=== PATIENT | male | born 1975 | race Caucasian/White ===

== ENCOUNTER 2016-08-06 08:58 | Inpatient (IN) | payer MEDICAID ==
[2016-08-06] MEDS ORDERED: IPRATROPIUM/ALBUTEROL 3 ML DEYVIAL IH ONE ×2 (09:09→10:19)
[2016-08-06] MEDS ORDERED: IPRATROPIUM/ALBUTEROL 3 ML DEYVIAL ONE (09:11)
[2016-08-06 09:15] LABS: % IMMATURE GRANULYOCYTES 0.5 % (0.0-1.1); ABSOLUTE IMMATURE GRANULOCYTES 0.05 10^3/uL (0.00-0.10); ADD DIFF? NO; ADD MORPH? NO; ADD SCAN? NO; ATYPICAL LYMPHOCYTE FLAG 30 (0-99); FRAGMENT RBC FLAG 0 (0-99); HEMATOCRIT 43.2 % (40.0-51.0); HEMOGLOBIN 15.1 g/dL (13.7-17.5); LEFT SHIFT FLG 0 (0-99); LIPEMIA HEMOLYSIS FLAG 90 (0-99); MEAN CELL HEMOGLOBIN 31.1 pg (27.9-34.1); MEAN CELL VOLUME 88.9 fL (81.5-99.8); MEAN PLATELET VOLUME 11.8 fL (8.7-11.7); PLATELET CLUMPS FLAG 0 (0-99); PLATELET COUNT 201 10^3/uL (150-400); RED BLOOD CELL COUNT 4.86 10^6/uL (4.40-6.38); RED CELL DISTRIBUTION WIDTH 12.8 % (11.5-15.2)
[2016-08-06] MEDS ORDERED: NS 1,000 ML BAG *FOR SEPSIS ORDER SET ONLY IV ONE (09:50)
--- NOTE | 2016-08-06 09:53 | EDPHY ---
H & P Stated Complaint: 1 week FLS, coughing green sputum, fevers, chills, Time Seen by Provider: 08/06/16 09:43 HPI/ROS: CHIEF COMPLAINT: Cough, dyspnea times 10 days HISTORY OF PRESENT ILLNESS: 41-year-old old homeless male arrives via private vehicle complaining of 10 days of productive cough, dyspnea, chest pain. Daily smoker. Non chronic alcohol use. No back pain. No international travel. REVIEW OF SYSTEMS: A ten point review of systems was performed and is negative with the exception of the items mentioned in the HPI PAST MEDICAL & SURGICAL HISTORY: No pertinent medical or surgical history . No influenza vaccination SOCIAL HISTORY: daily smoker. Homeless. Denies cocaine or other illicit drug use. Intermittent alcohol use, not daily PHYSICAL EXAM (Prior to examination, patient consented to physical exam, hands were washed and my usual and customary physical exam procedures followed) 1) GENERAL: Well-developed, well-nourished, alert and oriented. Appears uncomfortable .Answering questions appropriately 2) HEAD: Normocephalic, atraumatic 3) HEENT:[Pupils equal, round, reactive to light bilaterally. Sclera anicteric.Nasopharynx, oropharynx, clear, no lesions. No tonsillar enlargement or exudate.Ears bilaterally with normal tympanic membranes. 4) NECK: Full range of motion, no meningeal signs. 5) LUNGS: Clear auscultation bilaterally, no wheezes, no rhonchi, no retractions. 6) HEART: Regular rate and rhythm, no murmur, no heave, no gallop. 7) ABDOMEN: No guarding, no rebound, no focal tenderness, negative McBurney's, 8) MUSCULOSKELETAL: Moving all extremities, no focal areas of tenderness, no obvious trauma. No peripheral edema or discoloration. 9) BACK: No CVA tenderness 10) SKIN: No rash, no petechiae. 11) Psychiatric: Patient is oriented X 3, there is no agitation. DIFFERENTIAL DIAGNOSIS: in no particular include but limited to pulmonary infectious etiology, influenza, [place], PE - Personal History Current Tetanus/Diphtheria Vaccine: Yes Current Tetanus Diphtheria and Acellular Pertussis (TDAP): Yes - Medical/Surgical History Hx Asthma: No Hx Chronic Respiratory Disease: No Hx Diabetes: No Hx Cardiac Disease: No Hx Renal Disease: No Hx Cirrhosis: No Hx Alcoholism: No Hx HIV/AIDS: No Hx Splenectomy or Spleen Trauma: No Other PMH: none - Social History Smoking Status: Current every day smoker Constitutional: Initial Vital Signs Temperature (C) 36.5 C 08/06/16 09:10 Heart Rate 115 H 08/06/16 09:10 Respiratory Rate 25 H 08/06/16 09:10 Blood Pressure 113/70 08/06/16 09:10 O2 Sat (%) 96 08/06/16 09:10 O2 Delivery Mode Room Air O2 (L/minute) 2 Allergies/Adverse Reactions: hydrocodone bitartrate [From Vicodin] Allergy (Intermediate, Verified 08/31/14 16:24) Itching Home Medications: Medication Instructions Recorded NK [No Known Home Meds] 08/06/16 Medical Decision Making - Diagnostics Imaging: PA and Lateral Chest History: Productive cough in a 41-year-old male; comparison prior study September. The patient has a smoking history. Findings: The heart and mediastinal contours are normal. Pulmonary vascularity is normal. There is central mild peribronchial thickening which is slightly more pronounced than on the previous examination. There are no alveolar opacities seen to suggest pneumonia. Impression: Findings consistent with bronchitis are noted. An element of the peribronchial thickening may be related to the smoking history. Dictated By: José Hoffman MD images reviewed by myself ED Course/Re-evaluation: 9:55 a.m.: Diagnostic studies will be ordered, patient has triggered initial sepsis criteria. Discussed case Dr. Clarke in ER. 12:15 p.m.: Patient has been re-evaluated with serial exams. He is noted to have a positive influenza. He has been ambulated in the emergency department and remains tachycardic in the 120s to 130s and tachypneic. His pulse oxygenation remains in the low 90s. He is homeless. I do not think this patient is an appropriate candidate for outpatient therapy and recommended admission which he is agreeable with. Doubt PE. Doubt [place]. 12:25 p.m.: Phone consultation with hospitalist, Jessie, admit to Dr. Schmidt - Data Points Laboratory Results: Laboratory Results 08/06/16 09:09 08/06/16 09:09 0108/06/16 08/06/16 10:55 10:15 09:50 WBC RBC Hgb Hct MCV MCH MCHC RDW Plt Count MPV Neut % (Auto) Lymph % (Auto) [place] % (Auto) Eos % (Auto) Baso % (Auto) Nucleat RBC Rel Count Absolute Neuts (auto) Absolute Lymphs (auto) Absolute Monos (auto) Absolute Eos (auto) Absolute Basos (auto) Absolute Nucleated RBC Immature Gran % Immature Gran # PT INR APTT D-Dimer VBG Lactic Acid 1.6 mmol/L (0.7-2.1) Sodium Potassium Chloride Carbon Dioxide Anion Gap BUN Creatinine Estimated GFR Glucose Calcium Total Bilirubin 1.0 mg/dL (0.1-1.4) Troponin I < 0.012 ng/mL (0-0.034) Influenza Typ A,B (DFA) POSITIVE FOR FLU A H (NEGATIVE) 08/06/16 08/06/16 09:30 09:09 WBC 10.64 H 10^3/uL (3.80-9.50) RBC 4.86 10^6/uL (4.40-6.38) Hgb 15.1 g/dL (13.7-17.5) Hct 43.2 % (40.0-51.0) MCV 88.9 fL (81.5-99.8) MCH 31.1 pg (27.9-34.1) MCHC 35.0 g/dL (32.4-36.7) RDW 12.8 % (11.5-15.2) Plt Count 201 10^3/uL (150-400) MPV 11.8 H fL (8.7-11.7) Neut % (Auto) 80.0 H % (39.3-74.2) Lymph % (Auto) 8.0 L % (15.0-45.0) [place] % (Auto) 10.9 % (4.5-13.0) Eos % (Auto) 0.2 L % (0.6-7.6) Baso % (Auto) 0.4 % (0.3-1.7) Nucleat RBC Rel Count 0.0 % (0.0-0.2) Absolute Neuts (auto) 8.52 H 10^3/uL (1.70-6.50) Absolute Lymphs (auto) 0.85 L 10^3/uL (1.00-3.00) Absolute Monos (auto) 1.16 H 10^3/uL (0.30-0.80) Absolute Eos (auto) 0.02 L 10^3/uL (0.03-0.40) Absolute Basos (auto) 0.04 10^3/uL (0.02-0.10) Absolute Nucleated RBC 0.00 10^3/uL (0-0.01) Immature Gran % 0.5 % (0.0-1.1) Immature Gran # 0.05 10^3/uL (0.00-0.10) PT 13.4 SEC (12.0-15.0) INR 1.03 (0.83-1.16) APTT 29.5 SEC (23.0-38.0) D-Dimer 0.46 ug/mLFEU (0.00-0.50) VBG Lactic Acid Sodium 137 mEq/L (134-144) Potassium 4.2 mEq/L (3.5-5.2) Chloride 101 mEq/L (97-110) Carbon Dioxide 25 mEq/l (22-31) Anion Gap 11 mEq/L (8-16) BUN 9 mg/dL (7-23) Creatinine 1.1 mg/dL (0.7-1.3) Estimated GFR > 60 Glucose 103 H mg/dL (70-100) Calcium 9.0 mg/dL (8.5-10.4) Total Bilirubin Troponin I Influenza Typ A,B (DFA) Medications Given: Discontinued Medications Albuterol/Ipratropium (Duoneb) 3 ml IH EDNOW ONE Stop: 08/06/16 09:10 Last Admin: 08/06/16 09:15 Dose: 3 ml Albuterol/Ipratropium (Duoneb) 3 ml IH EDNOW ONE Stop: 08/06/16 10:20 Last Admin: 08/06/16 11:00 Dose: 3 ml Lorazepam (Ativan Injection) 1 mg IVP EDNOW ONE Stop: 08/06/16 12:30 Last Admin: 08/06/16 12:56 Dose: 1 mg Methylprednisolone Sodium Succinate (Solu-Medrol) 125 mg IVP EDNOW ONE Stop: 08/06/16 10:20 Last Admin: 08/06/16 10:55 Dose: 125 mg Oseltamivir Phosphate (Tamiflu) 75 mg PO EDNOW ONE Stop: 08/06/16 11:37 Last Admin: 08/06/16 11:45 Dose: 75 mg Sodium Chloride (Ns *For Sepsis Order Set Only*) 2,722 ml IV EDNOW ONE Stop: 08/06/16 09:51 Last Admin: 08/06/16 10:25 Dose: 2,722 ml Departure - Departure Disposition: [facility] Acute Clinical Impression: Influenza due to influenza virus, type A, human
--- NOTE | 2016-08-06 10:04 | DX ---
PA and Lateral Chest History: Productive cough in a 41-year-old male; comparison prior study September 14, 2014. The patient bill s a smoking history. Findings: The heart and mediastinal contours are normal. Pulmonary vascularity is normal. There is c entral mild peribronchial thickening which is slightly more pronounced than on the previous examinati on. There are no alveolar opacities seen to suggest pneumonia. Impression: Findings consistent with bronchitis are noted. An element of the peribronchial thickeni ng may be related to the smoking history.
--- NOTE | 2016-08-06 10:05 | CPEKG ---
Heart Rate: 106 RR Interval: 566 P-R Interval: 132 QRSD Interval: 114 QT Interval: 376 QTC Interval: 500 P [place]: 65 QRS [place]: 80 T Wave [place]: 18 EKG Severity - ABNORMAL ECG - EKG Impression: SINUS TACHYCARDIA EKG Impression: NONSPECIFIC INTRAVENTRICULAR CONDUCTION DELAY Electronically Signed By: Ivana Lyn 08-Aug-2016 15:04:08
[2016-08-06 10:07] LABS: ANION GAP 11 mEq/L (8-16); CARBON DIOXIDE 25 mEq/l (22-31); CHLORIDE 101 mEq/L (97-110); CREATININE 1.1 mg/dL (0.7-1.3); GLOMERULAR FILTRATION RATE > 60; GLUCOSE 103 mg/dL (70-100); POTASSIUM 4.2 mEq/L (3.5-5.2); SODIUM 137 mEq/L (134-144)
[2016-08-06 10:12] LABS: INR 1.03 (0.83-1.16); PROTIME(PATIENT) 13.4 SEC (12.0-15.0)
[2016-08-06 10:13] LABS: APTT 29.5 SEC (23.0-38.0)
[2016-08-06] MEDS ORDERED: methylPREDNISolone SOD SUCC 125 MG/2 ML VIAL IVP ONE (10:19)
[2016-08-06 11:04] LABS: TROPONIN I < 0.012 ng/mL (0-0.034)
[2016-08-06] MEDS ORDERED: OSELTAMIVIR PHOSPHATE 75 MG CAP PO ONE (11:36)
[2016-08-06] MEDS ORDERED: LORazepam 2 MG/ML INJ IVP ONE (12:29)
[2016-08-06 14:51] LABS: COLOR YELLOW; LEUKOCYTE ESTERASE,URINE NEGATIVE (NEGATIVE); NITRITE,URINE NEGATIVE (NEGATIVE)
[2016-08-06] MEDS ORDERED: ONDANSETRON 4 MG/2 ML VIAL IVP PRN (15:17)
[2016-08-06] MEDS ORDERED: ONDANSETRON DISINTEGRATING 4 MG TAB PO PRN (15:17)
--- NOTE | 2016-08-06 15:29 | PDGENHP ---
History and Physical - Chief Complaint sob - History of Present Illness 41 YO recently homeless male who has been having SOB, fatigue, and malaise for 10 days. Denies fever. Reports Chills. Experiencing non productive cough, SOB, EUBANKS. Was worse today so he presented to [facility]. In the ED he was found to have Influenza A. Tamiflu, steroids, and IVF started. Feels better since receiving this in the E.D. Did not get the influenza vaccine this year CXR: no signs of pneumonia. There is peribronchial thickening ROS: + per HPI, otherwise negative PMHX: Migraines SOCHX: + T/+E/denies illicits FmHx: adopted all/meds: see med rec O VSS on RA. Not hypotensive. Slight tachycardia NAD MM MOIST NO JVD RRR DIMINISHED BILATERALLY, EXP WHEEZE BILATERALLY, NORMAL WORK OF BREATHING S/NT/ND NO EDEMA AAOX3 History Information - Allergies/Home Medication List Allergies/Adverse Reactions: hydrocodone bitartrate [From Vicodin] Allergy (Intermediate, Verified 08/31/14 16:24) Itching Home Medications: NK [No Known Home Meds] 08/06/16 [Last Taken Unknown] I have personally reviewed and updated: medical history, social history - Social History Smoking Status: Current every day smoker Physical Exam Temp Pulse Resp BP Pulse Ox 37.1 C 118 H 24 H 103/62 95 08/06/16 13:59 08/06/16 13:59 08/06/16 13:59 08/06/16 13:59 08/06/16 13:59 Lab Data & Imaging Review 08/06/16 09:09 08/06/16 09:09 WBC 10.64 10^3/uL (3.80-9.50) H 08/06/16 09:09 RBC 4.86 10^6/uL (4.40-6.38) 08/06/16 09:09 Hgb 15.1 g/dL (13.7-17.5) 08/06/16 09:09 Hct 43.2 % (40.0-51.0) 08/06/16 09:09 MCV 88.9 fL (81.5-99.8) 08/06/16 09:09 MCH 31.1 pg (27.9-34.1) 08/06/16 09:09 MCHC 35.0 g/dL (32.4-36.7) 08/06/16 09:09 RDW 12.8 % (11.5-15.2) 08/06/16 09:09 Plt Count 201 10^3/uL (150-400) 08/06/16 09:09 MPV 11.8 fL (8.7-11.7) H 08/06/16 09:09 Neut % (Auto) 80.0 % (39.3-74.2) H 08/06/16 09:09 Lymph % (Auto) 8.0 % (15.0-45.0) L 08/06/16 09:09 [place] % (Auto) 10.9 % (4.5-13.0) 08/06/16 09:09 Eos % (Auto) 0.2 % (0.6-7.6) L 08/06/16 09:09 Baso % (Auto) 0.4 % (0.3-1.7) 08/06/16 09:09 Nucleat RBC Rel Count 0.0 % (0.0-0.2) 08/06/16 09:09 Absolute Neuts (auto) 8.52 10^3/uL (1.70-6.50) H 08/06/16 09:09 Absolute Lymphs (auto) 0.85 10^3/uL (1.00-3.00) L 08/06/16 09:09 Absolute Monos (auto) 1.16 10^3/uL (0.30-0.80) H 08/06/16 09:09 Absolute Eos (auto) 0.02 10^3/uL (0.03-0.40) L 08/06/16 09:09 Absolute Basos (auto) 0.04 10^3/uL (0.02-0.10) 08/06/16 09:09 Absolute Nucleated RBC 0.00 10^3/uL (0-0.01) 08/06/16 09:09 Immature Gran % 0.5 % (0.0-1.1) 08/06/16 09:09 Immature Gran # 0.05 10^3/uL (0.00-0.10) 08/06/16 09:09 PT 13.4 SEC (12.0-15.0) 08/06/16 09:30 INR 1.03 (0.83-1.16) 08/06/16 09:30 APTT 29.5 SEC (23.0-38.0) 08/06/16 09:30 D-Dimer 0.46 ug/mLFEU (0.00-0.50) 08/06/16 09:30 VBG Lactic Acid 1.6 mmol/L (0.7-2.1) 08/06/16 10:15 Sodium 137 mEq/L (134-144) 08/06/16 09:09 Potassium 4.2 mEq/L (3.5-5.2) 08/06/16 09:09 Chloride 101 mEq/L (97-110) 08/06/16 09:09 Carbon Dioxide 25 mEq/l (22-31) 08/06/16 09:09 Anion Gap 11 mEq/L (8-16) 08/06/16 09:09 BUN 9 mg/dL (7-23) 08/06/16 09:09 Creatinine 1.1 mg/dL (0.7-1.3) 08/06/16 09:09 Estimated GFR > 60 08/06/16 09:09 Glucose 103 mg/dL (70-100) H 08/06/16 09:09 Calcium 9.0 mg/dL (8.5-10.4) 08/06/16 09:09 Total Bilirubin 1.0 mg/dL (0.1-1.4) 08/06/16 09:50 Troponin I < 0.012 ng/mL (0-0.034) 08/06/16 09:50 Urine Color YELLOW 08/06/16 14:10 Urine Appearance CLEAR 08/06/16 14:10 Urine pH 7.0 (5.0-7.5) 08/06/16 14:10 Ur Specific [place] 1.011 (1.002-1.030) 08/06/16 14:10 Urine Protein NEGATIVE (NEGATIVE) 08/06/16 14:10 Urine Ketones NEGATIVE (NEGATIVE) 08/06/16 14:10 Urine Blood NEGATIVE (NEGATIVE) 08/06/16 14:10 Urine Nitrate NEGATIVE (NEGATIVE) 08/06/16 14:10 Urine Bilirubin NEGATIVE (NEGATIVE) 08/06/16 14:10 Urine Urobilinogen 4.0 EU (0.2-1.0) H 08/06/16 14:10 Ur Leukocyte Esterase NEGATIVE (NEGATIVE) 08/06/16 14:10 Urine Glucose NEGATIVE (NEGATIVE) 08/06/16 14:10 Influenza Typ A,B (DFA) POSITIVE FOR FLU A (NEGATIVE) H 08/06/16 10:55 Assessment & Plan Assessment: A/P #INFLUENZA A #BRONCHITIS (VIRAL) #CHRONIC TOBACCO USE PLAN: OBSERVATION THE PATIENT APPEARS STABLE HEMODYNAMICALLY. HE DID RECEIVE IVF FOR POSSIBLE SEPSIS. HE FEELS MUCH BETTER SINCE STARTING THERAPY. SERUM LACTATE IS NORMAL. HE DOES NOT APPEAR TO BE ACTIVELY IN RESP DISTRESS AND HAS A NORMAL WORK OF BREATHING AND RATE ON MY EXAM. HE HAS MILD LEUKOCYTOSIS. BP IS INTACT. HE DOES NOT HAVE AN INFILTRATE ON IMAGING. THERE IS NO LAB DATA TO SUGGEST END ORGAN DAMAGE. ETIOLOGY CURRENTLY FAVORS INFLUENZA/VIRAL ETIOLOGY. I WILL NOT ORDER ABX AT THIS TIME. HE WILL GET FURTHER IVF AND STEROIDS. WILL ALSO SCHEDULE BRONCHODILATOR AND TAMIFLU. F/U BCX LOVENOX FOR DVT PROPH FULL CODE TOTAL CARE TIME IS 60 MINS.
[2016-08-06] MEDS: ALBUTEROL 60 PUFFS/8 GM MDI IH SCH (17:58)
[2016-08-06] MEDS: NS 1,000 ML IV SCH (18:59)
[2016-08-06] MEDS: ACETAMINOPHEN 325 MG TAB PO PRN ×2 (19:11→23:55)
[2016-08-06] MEDS: OSELTAMIVIR PHOSPHATE 75 MG CAP PO SCH (19:11)
[2016-08-06] MEDS: methylPREDNISolone SOD SUCC 125 MG/2 ML VIAL IVP SCH (22:24)
[2016-08-07 05:24] LABS: % IMMATURE GRANULYOCYTES 0.5 % (0.0-1.1); ABSOLUTE IMMATURE GRANULOCYTES 0.11 10^3/uL (0.00-0.10); ADD DIFF? NO; ADD MORPH? NO; ADD SCAN? NO; ATYPICAL LYMPHOCYTE FLAG 20 (0-99); FRAGMENT RBC FLAG 20 (0-99); HEMATOCRIT 38.4 % (40.0-51.0); HEMOGLOBIN 13.5 g/dL (13.7-17.5); LEFT SHIFT FLG 30 (0-99); LIPEMIA HEMOLYSIS FLAG 90 (0-99); MEAN CELL HEMOGLOBIN 31.6 pg (27.9-34.1); MEAN CELL HEMOGLOBIN CONCENTR. 35.2 g/dL (32.4-36.7); MEAN CELL VOLUME 89.9 fL (81.5-99.8); MEAN PLATELET VOLUME 11.4 fL (8.7-11.7); PLATELET CLUMPS FLAG 10 (0-99); PLATELET COUNT 166 10^3/uL (150-400); RED BLOOD CELL COUNT 4.27 10^6/uL (4.40-6.38); RED CELL DISTRIBUTION WIDTH 12.9 % (11.5-15.2)
[2016-08-07] MEDS: ACETAMINOPHEN 325 MG TAB PO PRN ×2 (05:40→21:59)
[2016-08-07] MEDS: NS 1,000 ML IV SCH (05:41)
[2016-08-07] MEDS: oxyCODONE IR 5 MG TAB PO PRN ×2 (05:41→21:58)
[2016-08-07 05:47] LABS: ANION GAP 9 mEq/L (8-16); CALCIUM 8.3 mg/dL (8.5-10.4); CARBON DIOXIDE 23 mEq/l (22-31); CHLORIDE 106 mEq/L (97-110); GLOMERULAR FILTRATION RATE > 60; GLUCOSE 152 mg/dL (70-100); POTASSIUM 4.4 mEq/L (3.5-5.2); SODIUM 138 mEq/L (134-144)
[2016-08-07] MEDS: ALBUTEROL 60 PUFFS/8 GM MDI IH SCH ×4 (06:02→15:25)
[2016-08-07] MEDS: OSELTAMIVIR PHOSPHATE 75 MG CAP PO SCH ×2 (08:20→18:45)
[2016-08-07] MEDS: methylPREDNISolone SOD SUCC 125 MG/2 ML VIAL IVP SCH ×2 (08:20→21:53)
[2016-08-07] MEDS ORDERED: NS 2,000 ML IV SCH (08:30)
[2016-08-07] MEDS ORDERED: ENOXAPARIN 40 MG/0.4 ML SYR SC SCH (09:00)
--- NOTE | 2016-08-07 10:16 | HOSPPROG ---
Hospitalist Progress Note Assessment/Plan: A/P #INFLUENZA A #BRONCHITIS (VIRAL) #CHRONIC TOBACCO USE #CHEST PAIN #LEUKOCYTOSIS #FEVER PLAN: INPT CXR D-DIMER TROPONIN ZOSYN IVF SCD'S, REFUSING LOVENOX HE CONTINUES TO HAVE FEVER, COUGH, AND SOME SOB. BP HAS BEEN SOMEWHAT SOFT. BC' X NO GROWTH THUS FAR. LACTIC ACID NEGATIVE YESTERDAY. HAS GOOD URINE OUTPUT PER HIS REPORT AND THE NURSE. AT THIS TIME WILL EMPIRICALLY START ZOSYN AND ADDITIONAL IVF WELL RECHECK CXR. HI HAS SOME CP WHICH HE SAYS IS THE SAME YESTERDAY. LIKELY DUE TO COUGHING. TROP AND D-DIMER YESTERDAY WERE UNREMARKABLE AND WILL RECHECK TODAY. F/U BCX SCD'S FOR DVT PROPH FULL CODE S: STILL WITH COUGH, SOB, FEVER O: BP SYSTOLIC 100'S NAD AAOX3 MMM NO JVD RRR EXP WHEEZE, NORMAL WORK OF BREATHING S/NT/ND NO EDEMA LABS/STUDIES: REVIEWED TOTAL CARE TIME IS 40 MINS. Objective: Vital Signs Temp Pulse Resp BP Pulse Ox 37.2 C 93 24 H 109/70 94 08/07/16 09:36 08/07/16 05:10 08/07/16 05:10 08/07/16 05:10 08/07/16 05:10 Laboratory Results 08/07/16 05:02 08/07/16 05:02 08/06/16 08/07/16 08/08/16 05:59 05:59 05:59 Intake Total 3000 Output Total 1000 Balance 2000 PT 13.4 SEC (12.0-15.0) 08/06/16 09:30 INR 1.03 (0.83-1.16) 08/06/16 09:30 ICD10 Worksheet Patient Problems: Problems Problem Status Diagnosed Influenza A Acute Migraine equivalent Acute
--- NOTE | 2016-08-07 10:54 | DX ---
Portable Chest, Single View. 07 August 2016 History: Shortness of breath and right-sided chest pain. Comparison: 06 August 2016. Findings: Nodular opacification is seen perihilar region bilaterally, right greater than left, new fr om yesterday indicating pneumonia or pulmonary edema. There is also patchy opacification in the right lower lobe which could be related to infiltrate or atelectasis. It is also seen to a lesser extent a t the left lung base. Heart size is stable. Impression: Patchy nodular opacification bilaterally more predominant on the right which could repres ent pneumonia or pulmonary edema.
[2016-08-07] MEDS ORDERED: PIPERACILLIN/TAZO 3.375 GM/DEX 50 ML IV SCH (12:00)
[2016-08-07] MEDS: PIPERACILLIN/TAZO 3.375 GM/DEX 50 ML IV SCH ×2 (15:45→21:52)
[2016-08-07] MEDS ORDERED: NICOTINE 14 MG/24 HR PATCH TD SCH (17:00)
[2016-08-08] MEDS: PIPERACILLIN/TAZO 3.375 GM/DEX 50 ML IV SCH (03:28)
[2016-08-08] MEDS: ALBUTEROL 60 PUFFS/8 GM MDI IH SCH ×2 (06:15)
[2016-08-08 08:27] VITALS: BP 100/74; RESP 16; TEMP 98; O2SAT 91
[2016-08-08 08:30] VITALS: PULSE 85
--- NOTE | 2016-08-08 12:07 | PDDCSUM ---
Discharge Summary Discharge Summary: HPI/HOSPITAL COURSE The patient was hospitalized for influenza, bronchitis, and, fever. Please see H &P. He was admitted and started on Tamiflu, IVF, and steroids. He continue to have a fever and borderline low bp and he was provided further IVF and started on Zosyn. He responded well to this and was feeling better. Unfortunately on the night prior to discharge his IV infiltrated and he refused another IV. He refused labs in the morning. Ultimately he wanted to leave. Nursing tried to get him to change his mind, but he left AMA. No prescriptions were given. He was not seen by our hospitalist service today. DDx: #INFLUENZA A #BRONCHITIS (VIRAL) #CHRONIC TOBACCO USE #CHEST PAIN #LEUKOCYTOSIS #FEVER
== END 2016-08-08 09:20 | disposition left against medical advice (07) | DRG 195 ==
LOC: EDUNIT# → INTOOBSV 12:27 → F3E 15:42 → OBSVTOIN 08-07 10:17
PROVIDERS: ADMIT Hospitalist; ATTEND Family Medicine
DX: J10.1 Influenza due to other identified influenza virus with other respiratory manifestations (principal); J20.8 Acute bronchitis due to other specified organisms; F17.200 Nicotine dependence, unspecified, uncomplicated; Z59.0 Homelessness
CPT/HCPCS: 96374; G0378; J1650; J2543

== ENCOUNTER 2016-08-22 06:47 | Observation (INO) | payer MEDICAID ==
[2016-08-22] MEDS ORDERED: NS 1,000 ML BAG *FOR SEPSIS ORDER SET ONLY IV ONE (07:35)
--- NOTE | 2016-08-22 07:38 | EDPHY ---
H & P Stated Complaint: COUGHING UP GREEN STUFF WEEKS, FEVER, SIGNED OUT AMA, BACK PAIN Time Seen by Provider: 08/22/16 07:20 HPI/ROS: CHIEF COMPLAINT: Cough, short of breath, body aches and fever HISTORY OF PRESENT ILLNESS: Patient is a 41-year-old man who comes to the emergency department complaining of a cough, short of breath, body aches and fevers. He was seen here 2 weeks ago and diagnosed with influenza and bronchitis. He was treated with Tamiflu, steroids and admitted to the hospital. He states for 2 days but eventually left AMA because he felt better and was concerned about work. He did not complete his course of Tamiflu. He states that he has not felt better since he left. He has a history of migraines. He presents slightly hypotensive and tachycardic which is consistent with his previous admission but not for prior visits. REVIEW OF SYSTEMS: Constitutional: denies: chills, fever, recent illness, recent injury EENTM: denies: blurred vision, double vision, nose congestion Respiratory: See HPI Cardiac: denies: chest pain, irregular heart rate, lightheadedness, palpitations Gastrointestinal/Abdominal: denies: abdominal pain, diarrhea, nausea, vomiting, blood streaked stools Genitourinary: denies: dysuria, frequency, hematuria, pain Musculoskeletal: denies: joint pain, muscle pain Skin: denies: lesions, rash, jaundice, bruising Neurological: denies: headache, numbness, paresthesia, tingling, dizziness, weakness Hematologic/Lymphatic: denies: blood clots, easy bleeding, easy bruising Immunologic/allergic: denies: HIV/AIDS, transplant EXAM: GENERAL: Well-appearing, well-nourished and in no acute distress. HEAD: Atraumatic, normocephalic. EYES: Pupils equal round and reactive to light, extraocular movements intact, sclera anicteric, conjunctiva are normal. ENT: TMs normal, nares patent, oropharynx clear without exudates. Moist mucous membranes. NECK: Normal range of motion, supple without lymphadenopathy or JVD. LUNGS: Breath sounds clear to auscultation bilaterally and equal. No wheezes rales or rhonchi. HEART: Regular rate and rhythm without murmurs, rubs or gallops. ABDOMEN: Soft, nontender, normoactive bowel sounds. No guarding, no rebound. No masses appreciated. BACK: No CVA tenderness, no spinal tenderness, step-offs or deformities EXTREMITIES: Normal range of motion, no pitting or edema. No clubbing or cyanosis. NEUROLOGICAL: Cranial nerves II through XII grossly intact. Normal speech, normal gait. 5/5 strength, normal movement in all extremities, normal sensation PSYCH: Normal mood, normal affect. SKIN: Warm, dry, normal turgor, no visible rashes or lesions. Source: Patient, Old records Exam Limitations: No limitations - Personal History Current Tetanus/Diphtheria Vaccine: Yes Current Tetanus Diphtheria and Acellular Pertussis (TDAP): Yes - Medical/Surgical History Hx Asthma: No Hx Chronic Respiratory Disease: No Hx Diabetes: No Hx Cardiac Disease: No Hx Renal Disease: No Hx Cirrhosis: No Hx Alcoholism: No Hx HIV/AIDS: No Hx Splenectomy or Spleen Trauma: No Other PMH: Migraines - Family History Significant Family History: No pertinent family hx - Social History Smoking Status: Current every day smoker Alcohol Use: Sober Drug Use: None Constitutional: Initial Vital Signs Temperature (C) 36.4 C 08/22/16 06:49 Heart Rate 98 08/22/16 06:49 Respiratory Rate 18 08/22/16 06:49 Blood Pressure 95/73 L 08/22/16 06:49 O2 Sat (%) 97 08/22/16 06:49 O2 Delivery Mode Room Air Allergies/Adverse Reactions: hydrocodone bitartrate [From Vicodin] Allergy (Intermediate, Verified 08/22/16 06:53) Itching Home Medications: Medication Instructions Recorded NK [No Known Home Meds] 08/06/16 Medical Decision Making ED Course/Re-evaluation: The patient is still hypotensive 92/50 after 30 per kilos bolus. His saturations are 92%. He still feels body aches. His chest x-ray actually looks improved. I will start him on antibiotics and admit him for sepsis. I discussed the case with the hospital service and accepted by Dr. Hearn. He does not meet criteria for septic shock. Differential Diagnosis: Partial list of the Differential diagnosis considered include but were not limited to; sepsis, influenza, pneumonia and although unlikely based on the history and physical exam, I also considered endocarditis, meningitis. - Data Points Laboratory Results: Laboratory Results 08/22/16 07:30 08/22/16 07:30 08/22/16 07:30 WBC 11.98 H 10^3/uL (3.80-9.50) RBC 4.70 10^6/uL (4.40-6.38) Hgb 14.4 g/dL (13.7-17.5) Hct 42.0 % (40.0-51.0) MCV 89.4 fL (81.5-99.8) MCH 30.6 pg (27.9-34.1) MCHC 34.3 g/dL (32.4-36.7) RDW 13.3 % (11.5-15.2) Plt Count 376 10^3/uL (150-400) MPV 10.4 fL (8.7-11.7) Neut % (Auto) 73.8 % (39.3-74.2) Lymph % (Auto) 13.5 L % (15.0-45.0) [place] % (Auto) 9.3 % (4.5-13.0) Eos % (Auto) 2.3 % (0.6-7.6) Baso % (Auto) 0.5 % (0.3-1.7) Nucleat RBC Rel Count 0.0 % (0.0-0.2) Absolute Neuts (auto) 8.84 H 10^3/uL (1.70-6.50) Absolute Lymphs (auto) 1.62 10^3/uL (1.00-3.00) Absolute Monos (auto) 1.11 H 10^3/uL (0.30-0.80) Absolute Eos (auto) 0.28 10^3/uL (0.03-0.40) Absolute Basos (auto) 0.06 10^3/uL (0.02-0.10) Absolute Nucleated RBC 0.00 10^3/uL (0-0.01) Immature Gran % 0.6 % (0.0-1.1) Immature Gran # 0.07 10^3/uL (0.00-0.10) PT 12.2 SEC (12.0-15.0) INR 0.91 (0.83-1.16) APTT 25.5 SEC (23.0-38.0) VBG Lactic Acid 2.1 mmol/L (0.7-2.1) Sodium 143 mEq/L (134-144) Potassium 4.5 mEq/L (3.5-5.2) Chloride 109 mEq/L (97-110) Carbon Dioxide 24 mEq/l (22-31) Anion Gap 10 mEq/L (8-16) BUN 11 mg/dL (7-23) Creatinine 0.7 mg/dL (0.7-1.3) Estimated GFR > 60 Glucose 81 mg/dL (70-100) Calcium 8.8 mg/dL (8.5-10.4) Total Bilirubin 0.5 mg/dL (0.1-1.4) Medications Given: Discontinued Medications Ceftriaxone Sodium 2 gm/ (Dextrose) 50 mls @ 100 mls/hr IV EDNOW ONE PRN Reason: Protocol Stop: 08/22/16 10:12 Last Admin: 08/22/16 10:13 Dose: 50 mls Sodium Chloride (Ns *For Sepsis Order Set Only*) 2,449 ml IV EDNOW ONE Stop: 08/22/16 07:36 Last Admin: 08/22/16 07:42 Dose: 2,449 ml Departure - Departure Disposition: [facility]patient Acute Clinical Impression: Influenza A Acute bronchitis Qualifiers: Bronchitis organism: unspecified organism Qualifier Code: (J20.9) Acute bronchitis, unspecified Sepsis Qualifiers: Sepsis type: sepsis due to unspecified organism Qualifier Code: (A41.9) Sepsis , unspecified organism Condition: Fair
[2016-08-22 07:43] LABS: % IMMATURE GRANULYOCYTES 0.6 % (0.0-1.1); ABSOLUTE IMMATURE GRANULOCYTES 0.07 10^3/uL (0.00-0.10); ADD DIFF? NO; ADD MORPH? NO; ADD SCAN? NO; ATYPICAL LYMPHOCYTE FLAG 20 (0-99); FRAGMENT RBC FLAG 0 (0-99); HEMOGLOBIN 14.4 g/dL (13.7-17.5); LEFT SHIFT FLG 0 (0-99); LIPEMIA HEMOLYSIS FLAG 90 (0-99); MEAN CELL HEMOGLOBIN 30.6 pg (27.9-34.1); MEAN CELL HEMOGLOBIN CONCENTR. 34.3 g/dL (32.4-36.7); MEAN CELL VOLUME 89.4 fL (81.5-99.8); MEAN PLATELET VOLUME 10.4 fL (8.7-11.7); PLATELET CLUMPS FLAG 0 (0-99); PLATELET COUNT 376 10^3/uL (150-400); RED CELL DISTRIBUTION WIDTH 13.3 % (11.5-15.2)
[2016-08-22 07:52] LABS: APTT 25.5 SEC (23.0-38.0); INR 0.91 (0.83-1.16); PROTIME(PATIENT) 12.2 SEC (12.0-15.0)
[2016-08-22 07:55] LABS: ANION GAP 10 mEq/L (8-16); BILIRUBIN,TOTAL 0.5 mg/dL (0.1-1.4); CALCIUM 8.8 mg/dL (8.5-10.4); CARBON DIOXIDE 24 mEq/l (22-31); CHLORIDE 109 mEq/L (97-110); CREATININE 0.7 mg/dL (0.7-1.3); GLOMERULAR FILTRATION RATE > 60; GLUCOSE 81 mg/dL (70-100); POTASSIUM 4.5 mEq/L (3.5-5.2); SODIUM 143 mEq/L (134-144)
[2016-08-22 08:39] LABS: LACGHOST ORDER
--- NOTE | 2016-08-22 09:33 | DX ---
Chest, Two Views August 22, 2016, at 0747 Hours History: Worsening cough with pain. Comparison: August 07, 2016. Findings: Cardiac silhouette is within normal range. Previous bilateral parahilar infiltrates have re solved. No pneumonia, congestive heart failure, pleural effusion, or pneumothorax. Impression: 1. No residual pneumonia. 2. Consider CT chest imaging if clinically indicated.
[2016-08-22] MEDS ORDERED: cefTRIAXone 2 GM in D5W 50 ML IV ONE (09:43)
[2016-08-22] MEDS ORDERED: ONDANSETRON 4 MG/2 ML VIAL IVP PRN (15:00)
[2016-08-22] MEDS ORDERED: ONDANSETRON DISINTEGRATING 4 MG TAB PO PRN (15:00)
[2016-08-22] MEDS ORDERED: TEMAZEPAM 15 MG CAP PO PRN (15:00)
[2016-08-22] MEDS ORDERED: ACETAMINOPHEN 325 MG TAB PO PRN (15:00)
[2016-08-22] MEDS ORDERED: predniSONE 20 MG TAB PO ONE (15:02)
[2016-08-22] MEDS: NS 1,000 ML IV SCH (15:25)
--- NOTE | 2016-08-22 15:39 | GHP ---
[f rep st] HISTORY AND PHYSICAL DATE OF ADMISSION: 08/22/2016 CHIEF COMPLAINT: Cough, weakness, body aches. HISTORY OF PRESENT ILLNESS: This is a 41-year-old male, who a couple of weeks ago was diagnosed with influenza A. He was admitted to the hospital for a couple of days, but then left against medical advice. He had a few days of Tamiflu. He says ever since his discharge he has not been feeling well. He has had a cough with some sputum production. He also has some chest pain with deep inspiration. He feels a little bit short of breath. He also had some body aches. He has had some subjective chills as well. REVIEW OF SYSTEMS: A 10-point review of systems obtained is otherwise negative. PAST MEDICAL HISTORY: None. SOCIAL HISTORY: Does smoke. No alcohol. FAMILY HISTORY: Reviewed and noncontributory. PHYSICAL EXAM: VITAL SIGNS: Afebrile, blood pressure is 104/74. Heart rate is 88, oxygen saturation 93% on room air. GENERAL: The patient is well developed, in no apparent distress. HEENT: Nonicteric sclerae. Extraocular movements intact. Moist mucous membranes. NECK: Supple. No thyromegaly. LUNGS: Good effort. Coarse rhonchi and some slight expiratory wheezes. Fair air movement. CARDIOVASCULAR: Regular rate and rhythm. No murmurs or gallops. ABDOMEN: Positive bowel sounds. Soft, nontender, nondistended. No masses or organomegaly. EXTREMITIES: No clubbing, cyanosis, or edema. SKIN: No rash. Intact. NEUROLOGIC: Alert and orient x3. Moving all 4 extremities equally. PSYCH: Normal mood and affect. LABS: White blood cell count slightly elevated at 11, hemoglobin 14, platelets . Chemistries normal. Chest x-ray personally reviewed and interpreted, shows no pneumonia. ASSESSMENT: This is a 41-year-old male presenting with persistent symptoms after influenza 2 weeks ago. PLAN: 1. Recent influenza. This appears to have resolved. He does have some body aches that are consistent, but he has no fever currently. Will not restart Tamiflu. 2. Rule out pneumonia versus bronchitis. We will get a CAT scan to further evaluate, although his x-ray does look better today than previous. We will continue ceftriaxone that has been started by the emergency department. 3. Possible reactive airway disease. I think he has some inflamed airways due to the recent viral infection. We will give him a little bit of prednisone as well as albuterol and monitor his progress. 4. Possible sepsis. The patient's lactate is completely normal. His blood pressure was slightly low. I do not think this is sepsis. /[id number]/MODL MTDD
[2016-08-22] MEDS: ALBUTEROL 3 ML DEYVIAL IH SCH ×2 (17:30→22:31)
[2016-08-22] MEDS: NICOTINE 21 MG/24 HR PATCH TD SCH (18:45)
[2016-08-22] MEDS: NICOTINE 14 MG/24 HR PATCH TD SCH (18:45)
[2016-08-22 20:07] VITALS: RESP 16
--- NOTE | 2016-08-22 20:10 | CT ---
CT Chest, Without Contrast History: Worsening cough, with pain. Evaluate for pneumonia. Comparison: Radiograph performed earlier today. Technique: 1.5-mm helical images were obtained of the chest, without contrast. Multiplanar reformat ion was performed. Radiation dose reduction technique was utilized. Findings: There is mild peribronchial wall thickening bilaterally. There is mild atelectasis in the medial posterior right lower lobe. Subtle ground-glass opacity is seen in the medial right lower lo be. The left lung is clear. No evidence for a pleural effusion or pneumothorax. No significant med iastinal or hilar lymphadenopathy. The heart size is normal. There is a benign hemangioma in the ve rtebral body of T6. Impression: Mild bronchitis. Mild atelectasis in the medial posterior right lower lobe and possible subtle pneumonitis.
[2016-08-23] MEDS: ALBUTEROL 3 ML DEYVIAL IH SCH (05:27)
[2016-08-23] MEDS: NS 1,000 ML IV SCH (06:13)
[2016-08-23 08:06] VITALS: BP 106/54; PULSE 71; TEMP 97.9; O2SAT 96
[2016-08-23] MEDS ORDERED: predniSONE 20 MG TAB PO SCH (09:00)
[2016-08-23] MEDS ORDERED: AZITHROMYCIN 250 MG TAB PO ONE (09:27)
[2016-08-23] MEDS ORDERED: ALBUTEROL 60 PUFFS/8 GM MDI IH SCH (09:30)
[2016-08-23] MEDS ORDERED: ALBUTEROL HFA ANES ONLY 200 PUFFS/8.5 GM MDI IH SCH (09:30)
[2016-08-23] MEDS: NICOTINE 14 MG/24 HR PATCH TD SCH (10:09)
--- NOTE | 2016-08-23 10:22 | GDS ---
[f rep st] DISCHARGE SUMMARY DISCHARGE DIAGNOSES: 1. Recent influenza. 2. Acute bronchitis. 3. Reactive airway disease. HISTORY: This is a 41-year-old smoker, who had influenza 2 weeks ago. He presents with continued co ugh and shortness of breath. HOSPITAL COURSE: The patient had a chest x-ray, which did not show any pneumonia. He had a CAT scan as well that showed some subtle pneumonitis and probably bronchitis. He was on steroids as well as antibiotics. He has improved significantly and will be discharged home. He does not have any insura nce, so we will be providing prednisone, azithromycin, and albuterol inhaler for him. /[id number]/MODL
[2016-08-23] MEDS: NICOTINE 21 MG/24 HR PATCH TD SCH (10:43)
== END 2016-08-23 11:02 | disposition home or self-care (01) ==
LOC: F3E 13:15
PROVIDERS: ADMIT Internal Medicine; ATTEND Internal Medicine
DX: J20.9 Acute bronchitis, unspecified (principal); J45.909 Unspecified asthma, uncomplicated; I95.9 Hypotension, unspecified; M79.1 Myalgia; J98.11 Atelectasis; G43.909 Migraine, unspecified, not intractable, without status migrainosus; F17.200 Nicotine dependence, unspecified, uncomplicated; Z87.09 Personal history of other diseases of the respiratory system
CPT/HCPCS: 71020; 71250; 96361; 96365; 99285; G0378; J0696

== ENCOUNTER 2016-11-10 10:57 | Emergency (ER) | payer MEDICAID ==
[2016-11-10 11:07] VITALS: RESP 16; TEMP 98.1
--- NOTE | 2016-11-10 11:33 | EDPHY ---
H & P Time Seen by Provider: 11/10/16 11:12 HPI/ROS: CHIEF COMPLAINT: left foot and ankle pain HISTORY OF PRESENT ILLNESS: 41-year-old male complaining of acute left foot and ankle pain when he slipped on the ice this morning. He is able to bear weight albeit with pain . No fall from height. Occurred this morning. Reproducible pain with weight-bearing. PHYSICAL EXAM (Prior to examination, patient consented to physical exam, hands were washed and my usual and customary physical exam procedures followed) 1) GENERAL: Well-developed, well-nourished, alert and oriented. Appears to be in no acute distress. 2) HEAD: Normocephalic 3) HEENT: Pupils equal, round, reactive to light bilaterally. 4) LUNGS: Breathing comfortably. 5) MUSCULOSKELETAL: Tender to palpation dorsum of midfoot and tender to palpation lateral malleolus. proximal tibia and fibula nontender .5th MT nontender negative Serrano test, compartments soft 6) SKIN: intact 7) VASCULAR: DP,PT pulses and cap refill present and brisk DIFFERENTIAL DIAGNOSIS: in no particular order including but not limited to fracture, sprain, compartment syndrome Procedure: Crutches indications for crutch use discussed with patient. Patient fitted for crutches by ER staff. Observed ambulating with crutches. I think the patient has the capacity to safely use crutches. Usual and customary crutch walking precautions provided Procedure: Splint A Waterflow boot splint was applied by ER corn lab technician. After application of the splint I returned and re-examined the patient. The splint was adequately immobilizing the joint and distal to the splint the patient's circulation and sensation were intact. Patient shows no signs of compartment syndrome. Was given orthopedic precautions. Smoking Status: Current every day smoker Constitutional: Initial Vital Signs Temperature (C) 36.7 C 11/10/16 11:05 Heart Rate 97 11/10/16 11:05 Respiratory Rate 16 11/10/16 11:05 Blood Pressure 117/78 11/10/16 11:05 O2 Sat (%) 95 11/10/16 11:05 O2 Delivery Mode Room Air Allergies/Adverse Reactions: hydrocodone bitartrate [From Vicodin] Allergy (Intermediate, Verified 11/10/16 11:05) Itching Home Medications: Medication Instructions Recorded NK [No Known Home Meds] 11/10/16 MDM/Departure - MDM Imaging Results: Imaging Impressions Ankle X-Ray 11/10/16 11:12 Impression: No acute osseous findings. Foot X-Ray 11/10/16 11:12 Impression: No acute osseous findings. Images reviewed by myself ED Course/Re-evaluation: Re-evaluation with serial exams. Discussed limitations of x-ray. Doubt compartment syndrome. He has been given acetaminophen as he took ibuprofen pre- hospital. Usual customary orthopedic precautions and instructions provided. - Depart Disposition: Home, Routine, Self-Care Clinical Impression: Sprain of left foot Qualifiers: Encounter type: initial encounter Qualified Code(s): S93.602A - Unspecified sprain of left foot, initial encounter Sprain of left foot Qualifiers: Encounter type: initial encounter Qualified Code(s): S93.602A - Unspecified sprain of left foot, initial encounter Left ankle sprain Qualifiers: Encounter type: initial encounter Involved ligament of ankle: other ligament Qualified Code(s): S93.492A - Sprain of other ligament of left ankle, initial encounter Condition: Good Instructions: Ankle Sprain (ED) Additional Instructions: Return to the ER immediately if you experience discoloration, have worsening pain, numbness, tingling, or any other symptoms that concern you. If you received x-rays in the emergency department today, be advised, that ligamentous , tendon, muscular, and other non-bony injury cannot be fully ruled out. Try to keep your affected extremity elevated above the level of your chest, and keep cold packs on the affected area, for the next 48 hours. Referrals: Brandan Cuevas MD [Medical Doctor] - As per Instructions
[2016-11-10] MEDS ORDERED: ACETAMINOPHEN 500 MG TAB PO ONE (12:04)
[2016-11-10 12:22] VITALS: BP 118/77; PULSE 84; O2SAT 98
== END 2016-11-10 12:27 | disposition home or self-care (01) ==
DX: S93.602A Unspecified sprain of left foot, initial encounter (principal); S93.492A Sprain of other ligament of left ankle, initial encounter; F17.200 Nicotine dependence, unspecified, uncomplicated; W00.9XXA Unspecified fall due to ice and snow, initial encounter

== ENCOUNTER 2016-11-29 14:42 | Inpatient (IN) | payer MEDICAID ==
[2016-11-29] MEDS ORDERED: ONDANSETRON 4 MG/2 ML VIAL ONE (15:21)
--- NOTE | 2016-11-29 15:23 | EDPHY ---
H & P Stated Complaint: L arm infection --l arm pain and swelling--obvious infection wrist no traum Source: Patient Exam Limitations: No limitations - Personal History Current Tetanus/Diphtheria Vaccine: Unsure Current Tetanus Diphtheria and Acellular Pertussis (TDAP): Unsure - Medical/Surgical History Hx Asthma: No Hx Chronic Respiratory Disease: No Hx Diabetes: No Hx Cardiac Disease: No Hx Renal Disease: No Hx Cirrhosis: No Hx Alcoholism: No Hx HIV/AIDS: No Hx Splenectomy or Spleen Trauma: No Other PMH: Migraines - Social History Smoking Status: Current every day smoker Time Seen by Provider: 11/29/16 15:21 HPI/ROS: CHIEF COMPLAINT: left hand wound HISTORY OF PRESENT ILLNESS: 41-year-old male presents emergency department complaining of a left hand wound that has been getting progressively worse for the last week. He woke up 1 week ago with a red annette to his left hand, he thought this was a spider bite. The next day he picked it to try to drain this. Patient reports it is progressively gotten worse with a red streak up his arm. He reports subjective fevers and chills, nausea and fatigue. He denies chest pain or shortness of breath, denies IV drug use. Patient reports he has pain all the way up his arm, no numbness or tingling in his arm, no chest pain or shortness of breath. REVIEW OF SYSTEMS: A comprehensive 10 point review of systems is otherwise negative aside from elements mentioned in the history of present illness. (Bela Erwin) - Physical Exam Exam: Physical Exam Gen: Alert and Oriented, anxious, grimacing HEENT: PERRL, moist mucous membranes NECK: no meningismus CV: Tachycardic rate and regular rhythm PULM: CTAB, no wheezes ABDOMEN: soft, non tender to palpation, BS present BACK: No CVA tenderness NEURO: Neurologically grossly intact EXTREMITIES: Full active flexion and extension of left wrist and left elbow without difficulty SKIN: 3 cm x 3 cm abscess with surrounding cellulitis to dorsal medial aspect hand and lymphangitic streaking up past antecubital fossa PSYCH: answers questions appropriately. (Bela Erwin) Constitutional: Initial Vital Signs Temperature (C) 37.5 C 11/29/16 14:45 Heart Rate 118 H 11/29/16 14:45 Respiratory Rate 20 11/29/16 14:45 Blood Pressure 110/73 11/29/16 14:45 O2 Sat (%) 98 11/29/16 14:45 O2 Delivery Mode Room Air Allergies/Adverse Reactions: hydrocodone bitartrate [From Vicodin] Allergy (Intermediate, Verified 11/10/16 11:05) Itching Home Medications: Medication Instructions Recorded NK [No Known Home Meds] 11/10/16 Medical Decision Making Procedures: Procedure: Incision and Drainage abscess. The patient's abscess was located on the left hand. Risks, benefits, alternatives discussed with the patient and consent obtained. The area was prepped and draped in sterile fashion. The patient received local anesthesia with 1% lidocaine with epinephrine. The abscess was incised with a #11 blade and purulent drainage was expressed. The patient tolerated the procedure well. The procedure was performed by myself. (Bela Erwin) ED Course/Re-evaluation: IV established, CBC, chemistry panel, lactic acid and blood cultures obtained. Patient meets sepsis criteria with heart rate of 118 [place] [address], lactic acid of 1.7, normal chemistry panel. Abscess drained with purulent drainage. Patient is given 1 g of vancomycin. He is admitted to the hospitalist for further observation and treatment of his infection. Patient is aware of plan for admission and agrees to this. (Bela Erwin) Other Provider: This patient was evaluated and managed by the nurse practitioner. I have reviewed the chart and agree with the findings and plan of care as documented. ( Crystal Noe) - Data Points Laboratory Results: Laboratory Results 11/29/16 15:10 11/29/16 15:10 11/29/16 11/29/16 11/29/16 15:10 15:10 15:10 WBC RBC Hgb Hct MCV MCH MCHC RDW Plt Count MPV Neut % (Auto) Lymph % (Auto) [place] % (Auto) Eos % (Auto) Baso % (Auto) Nucleat RBC Rel Count Absolute Neuts (auto) Absolute Lymphs (auto) Absolute Monos (auto) Absolute Eos (auto) Absolute Basos (auto) Absolute Nucleated RBC Immature Gran % Immature Gran # PT 12.9 SEC SEC (12.0-15.0) INR 0.98 (0.83-1.16) APTT 28.7 SEC SEC (23.0-38.0) Sodium 141 mEq/L mEq/L (134-144) Potassium 3.8 mEq/L mEq/L (3.5-5.2) Chloride 102 mEq/L mEq/L (97-110) Carbon Dioxide 27 mEq/l mEq/l (22-31) Anion Gap 12 mEq/L mEq/L (8-16) BUN 18 mg/dL mg/dL (7-23) Creatinine 0.8 mg/dL mg/dL (0.7-1.3) Estimated GFR > 60 Glucose 117 mg/dL H mg/dL (70-100) Calcium 9.6 mg/dL mg/dL (8.5-10.4) Total Bilirubin 1.0 mg/dL mg/dL (0.1-1.4) 11/29/16 15:10 WBC 15.38 10^3/uL H 10^3/uL (3.80-9.50) RBC 5.19 10^6/uL 10^6/uL (4.40-6.38) Hgb 16.1 g/dL g/dL (13.7-17.5) Hct 45.9 % % (40.0-51.0) MCV 88.4 fL fL (81.5-99.8) MCH 31.0 pg pg (27.9-34.1) MCHC 35.1 g/dL g/dL (32.4-36.7) RDW 13.0 % % (11.5-15.2) Plt Count 272 10^3/uL 10^3/uL (150-400) MPV 11.0 fL fL (8.7-11.7) Neut % (Auto) 77.1 % H % (39.3-74.2) Lymph % (Auto) 12.5 % L % (15.0-45.0) [place] % (Auto) 7.5 % % (4.5-13.0) Eos % (Auto) 2.1 % % (0.6-7.6) Baso % (Auto) 0.3 % % (0.3-1.7) Nucleat RBC Rel Count 0.0 % % (0.0-0.2) Absolute Neuts (auto) 11.87 10^3/uL H 10^3/uL (1.70-6.50) Absolute Lymphs (auto) 1.93 10^3/uL 10^3/uL (1.00-3.00) Absolute Monos (auto) 1.15 10^3/uL H 10^3/uL (0.30-0.80) Absolute Eos (auto) 0.32 10^3/uL 10^3/uL (0.03-0.40) Absolute Basos (auto) 0.04 10^3/uL 10^3/uL (0.02-0.10) Absolute Nucleated RBC 0.00 10^3/uL 10^3/uL (0-0.01) Immature Gran % 0.5 % % (0.0-1.1) Immature Gran # 0.07 10^3/uL 10^3/uL (0.00-0.10) PT INR APTT Sodium Potassium Chloride Carbon Dioxide Anion Gap BUN Creatinine Estimated GFR Glucose Calcium Total Bilirubin Medications Given: Discontinued Medications Diphtheria/Tetanus/Acell Pertussis (Boostrix) 0.5 ml IM .ONCE ONE Stop: 11/29/16 16:04 Last Admin: 11/29/16 16:17 Dose: 0.5 ml Hydromorphone HCl (Dilaudid) 1 mg IVP EDNOW ONE Stop: 11/29/16 15:55 Last Admin: 11/29/16 15:55 Dose: 1 mg Vancomycin/Sodium Chloride (Vancomycin 1 Gm (Premix)) 250 mls @ 250 mls/hr IV EDNOW ONE PRN Reason: Protocol Stop: 11/29/16 16:53 Last Admin: 11/29/16 16:18 Dose: 250 mls Morphine Sulfate (Morphine) 4 mg IVP EDNOW ONE Stop: 11/29/16 15:29 Last Admin: 11/29/16 15:31 Dose: 4 mg Ondansetron HCl (Zofran) 4 mg IVP EDNOW ONE Stop: 11/29/16 15:29 Last Admin: 11/29/16 15:30 Dose: 4 mg Departure - Departure Disposition: [facility] Clinical Impression: Cellulitis of left hand Condition: Fair
[2016-11-29] MEDS ORDERED: ONDANSETRON 4 MG/2 ML VIAL IVP ONE (15:28)
[2016-11-29 15:29] LABS: % IMMATURE GRANULYOCYTES 0.5 % (0.0-1.1); ABSOLUTE IMMATURE GRANULOCYTES 0.07 10^3/uL (0.00-0.10); ADD DIFF? NO; ADD MORPH? NO; ADD SCAN? NO; ATYPICAL LYMPHOCYTE FLAG 10 (0-99); FRAGMENT RBC FLAG 0 (0-99); HEMATOCRIT 45.9 % (40.0-51.0); HEMOGLOBIN 16.1 g/dL (13.7-17.5); LEFT SHIFT FLG 0 (0-99); LIPEMIA HEMOLYSIS FLAG 90 (0-99); MEAN CELL HEMOGLOBIN CONCENTR. 35.1 g/dL (32.4-36.7); MEAN CELL VOLUME 88.4 fL (81.5-99.8); PLATELET CLUMPS FLAG 20 (0-99); PLATELET COUNT 272 10^3/uL (150-400); RED BLOOD CELL COUNT 5.19 10^6/uL (4.40-6.38)
[2016-11-29 15:38] LABS: ANION GAP 12 mEq/L (8-16); CALCIUM 9.6 mg/dL (8.5-10.4); CARBON DIOXIDE 27 mEq/l (22-31); CHLORIDE 102 mEq/L (97-110); CREATININE 0.8 mg/dL (0.7-1.3); GLOMERULAR FILTRATION RATE > 60; GLUCOSE 117 mg/dL (70-100); POTASSIUM 3.8 mEq/L (3.5-5.2); SODIUM 141 mEq/L (134-144)
[2016-11-29] MEDS ORDERED: HYDROmorphONE/DILAUDID 1 MG/ML SYR ONE (15:46)
[2016-11-29] MEDS ORDERED: VANCOMYCIN HCL/NORMAL SALINE 250 ML IV ONE (15:54)
[2016-11-29] MEDS ORDERED: HYDROmorphONE/DILAUDID 1 MG/ML SYR IVP ONE (15:54)
[2016-11-29] MEDS ORDERED: TDAP ADULT 0.5 ML INJ (BOOSTRIX) IM ONE (16:03)
[2016-11-29 16:12] LABS: INR 0.98 (0.83-1.16); PROTIME(PATIENT) 12.9 SEC (12.0-15.0)
[2016-11-29 16:13] LABS: APTT 28.7 SEC (23.0-38.0)
[2016-11-29] MEDS ORDERED: ALBUTEROL 60 PUFFS/8 GM MDI IH PRN (17:21)
[2016-11-29] MEDS ORDERED: ZOLPIDEM TARTRATE 5 MG TAB PO PRN (17:21)
[2016-11-29] MEDS ORDERED: ONDANSETRON DISINTEGRATING 4 MG TAB PO PRN (17:21)
[2016-11-29] MEDS ORDERED: ONDANSETRON 4 MG/2 ML VIAL IVP PRN (17:21)
[2016-11-29] MEDS ORDERED: PROMETHAZINE HCL 25 MG TAB PO PRN (17:21)
[2016-11-29] MEDS: NICOTINE 21 MG/24 HR PATCH TD SCH (17:58)
[2016-11-29] MEDS: NICOTINE POLACRILEX 2 MG GUM B PRN (17:58)
[2016-11-29] MEDS ORDERED: diphenhydrAMINE 25 MG CAP PO PRN (18:26)
[2016-11-29] MEDS: oxyCODONE IR 5 MG TAB PO PRN (18:52)
[2016-11-29] MEDS: ACETAMINOPHEN 325 MG TAB PO PRN (18:53)
--- NOTE | 2016-11-29 19:01 | GHP ---
[f rep st] HISTORY AND PHYSICAL DATE OF ADMISSION: 11/29/2016 CHIEF COMPLAINT: Left hand and arm pain. HISTORY: This is a 41-year-old man with a past medical history of migraines who presents with pain and swelling in his left upper extremity that now has streaking, erythema, and pain from his wrist u p towards his axilla. He notes that symptoms began about 1 week ago with what he thought was a spid er bite. It was initially a relatively small area though significantly tender. He attempted to pic k at this area to try to drain it, but was not really successful in getting anything to come out. T he redness and pain did progressively get worse and now he has an associated red streak that is also swollen and very tender. He has had associated fevers and chills and generalized malaise and fatig ue. He notes he has had no appetite for the last several days. He has had no chest pain or shortne ss of breath. He does have a cough intermittently but is not short of breath and not having any pro ductive sputum. He has had no urinary complaints. 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 PAST MEDICAL HISTORY: Includes complex migraine. SOCIAL HISTORY: Patient is a daily smoker, smokes about a pack per day. He uses marijuana nearly d aily. He does not drink alcohol very frequently. He is originally from [place]. Currently work s in a restaurant. He has been intermittently homeless in the past. FAMILY HISTORY: This is unknown as patient is adopted. REVIEW OF SYSTEMS: A 10-point review of systems obtained and negative, except as per HPI. HOME MEDICATIONS: None. ALLERGIES: Hydrocodone. PHYSICAL EXAM: VITAL SIGNS: BP 128/87, heart rate 100, respiratory rate 16, O2 SATs 93% on room ai r. Temperature is 36.8. GENERAL APPEARANCE: A well-developed, well-nourished man. He is awake an d alert. He is in no acute distress. EYES: Anicteric. HENT: Oropharynx clear. CARDIOVASCULAR: Mildly tachy, regular, no MRG. PULMONARY: CTA bilaterally. ABDOMEN: Soft, nontender, nondistend ed. EXTREMITIES: Left upper extremity with an area that has recently been incised and drained that has surrounding erythema with streaking up toward the axilla, very tender to palpation. Otherwise, no clubbing, cyanosis, or edema. SKIN: Warm, dry, well perfused, other than above. NEURO/PSYCH: Oriented and appropriate, pleasant. CLINICAL DATA: Labs reviewed. Significant for white blood cell count of 15.38, 77% neutrophils. A BG: Lactic acid 1.7. Chemistry unremarkable other than a glucose of 117. ASSESSMENT AND PLAN: This is a 41-year-old man, no significant past medical history, presenting wit h left upper extremity cellulitis with associated lymphangitis. 1. Cellulitis/lymphangitis. Again, present in the left upper extremity. Associated with significa nt tenderness as well as systemic symptoms such as fevers and chills. He has been started on IV van comycin. Will monitor with elevation and warm soaks as well as antibiotics overnight. Pending clin ical improvement, he may be able to be discharged home tomorrow on oral antibiotics. If he is not i mproving, however, he may need ongoing evaluation and even ID consultation. Reasonable, patient to be discharged tomorrow would include coverage for MRSA with something like clindamycin or Bactrim if no further culture data is available by that time. 2. Pain. Will continue both oral and IV antibiotics on an as needed basis. He does have some itch ing associated with pain medications and will also provide p.r.n. Benadryl. 3. Sepsis. Patient is meeting SIRS criteria with leukocytosis, tachycardia, and reported fevers at home. Again, cultures have been drawn and are pending. He has been treated with appropriate antib iotics and is currently hemodynamically stable. He does have a marginally elevated lactic acid leve l that will be repeated. 4. Tobacco use and dependency. Will provide nicotine patch and gum while inhouse. He is not inter ested in quitting. 5. Disposition. Observation status. Suspect he will need less than 48 hours stay for evaluation a nd management of above. Patient is new to my care. Old records reviewed and summarized as per HPI and past medical history. Care plan reviewed with ER physician, including plans for IV antibiotics at least over night. /[id number]/MODL
[2016-11-30 08:13] LABS: % IMMATURE GRANULYOCYTES 0.6 % (0.0-1.1); ABSOLUTE IMMATURE GRANULOCYTES 0.07 10^3/uL (0.00-0.10); ADD DIFF? NO; ADD MORPH? NO; ADD SCAN? NO; ATYPICAL LYMPHOCYTE FLAG 10 (0-99); FRAGMENT RBC FLAG 0 (0-99); HEMATOCRIT 47.2 % (40.0-51.0); HEMOGLOBIN 15.7 g/dL (13.7-17.5); LEFT SHIFT FLG 0 (0-99); LIPEMIA HEMOLYSIS FLAG 80 (0-99); MEAN CELL HEMOGLOBIN 30.2 pg (27.9-34.1); MEAN CELL HEMOGLOBIN CONCENTR. 33.3 g/dL (32.4-36.7); MEAN CELL VOLUME 90.8 fL (81.5-99.8); MEAN PLATELET VOLUME 11.4 fL (8.7-11.7); PLATELET CLUMPS FLAG 20 (0-99); PLATELET COUNT 238 10^3/uL (150-400); RED CELL DISTRIBUTION WIDTH 13.1 % (11.5-15.2)
[2016-11-30] MEDS: IBUPROFEN 200 MG TAB PO PRN ×2 (08:36→17:29)
--- NOTE | 2016-11-30 08:42 | HOSPPROG ---
Hospitalist Progress Note Assessment/Plan: Patient is a 41-year-old male presented with left hand and arm pain. His symptoms began a week ago in which he thought was a spider bite. He attempted to pick at the area to drain it. The pain became worse and he was admitted for further care * left upper extremity cellulitis with associated lymphangitis/left hand/ concern for abscess started on IV vancomycin likely a staph infection patient has been afebrile an white blood cell count has trended down patient has a formed abscess that needs draining/ surgery to see today had been drained in ER but needs further I & D * pain due to this patient is having severe pain/encouraged him to take meds * sepsis noted on admission * nicotine dependence patch *Plan : Dr Abel to evaluate today/ appreciate his involvement/ Patient will require another midnight stay/ will need iv abx/ in addition, will ask Infectious Disease team to get involved with his care Subjective: Justin is c/o of severe left hand pain/ pain is radiating up his arm. Objective: Vital Signs Temp Pulse Resp BP Pulse Ox 36.8 C 87 18 101/70 91 L 11/30/16 08:00 11/30/16 08:00 11/30/16 08:00 11/30/16 08:00 11/30/16 08:00 Microbiology 11/29/16 Unknown Gram Stain - Final Hand - Swab Laboratory Results 11/30/16 07:48 11/29/16 11/30/16 12/01/16 05:59 05:59 05:59 Intake Total 2350 Balance 2350 PT 12.9 SEC (12.0-15.0) 11/29/16 15:10 INR 0.98 (0.83-1.16) 11/29/16 15:10 - Physical Exam Constitutional: uncomfortable, No not in pain Eyes: PERRL Ears, Nose, Mouth, Throat: hearing normal Cardiovascular: regular rate and rhythym Respiratory: no respiratory distress Gastrointestinal: normoactive bowel sounds Skin: warm, other (left hand /outer aspect area below the small finger with a large (grape size) bump with bloody and purulent drainage. pt has associated lymphangitis extending up into left axialla area) Neurologic: AAOx3 Psychiatric: thought process linear, anxious ICD10 Worksheet Patient Problems: Problems Problem Status Onset Cellulitis of left hand Acute Acute bronchitis Acute Influenza A Acute Migraine equivalent Acute Sepsis Acute
[2016-11-30] MEDS: LORazepam 0.5 MG TAB PO PRN ×2 (08:56→11:40)
[2016-11-30] MEDS: oxyCODONE IR 5 MG TAB PO PRN ×2 (08:56→17:28)
[2016-11-30] MEDS: NICOTINE 21 MG/24 HR PATCH TD SCH (08:56)
[2016-11-30] MEDS: ENOXAPARIN 40 MG/0.4 ML SYR SC SCH ×2 (08:56→09:03)
[2016-11-30 09:06] LABS: ANION GAP 9 mEq/L (8-16); CALCIUM 8.9 mg/dL (8.5-10.4); CARBON DIOXIDE 23 mEq/l (22-31); CHLORIDE 108 mEq/L (97-110); CREATININE 0.7 mg/dL (0.7-1.3); GLOMERULAR FILTRATION RATE > 60; GLUCOSE 98 mg/dL (70-100); POTASSIUM 4.8 mEq/L (3.5-5.2); SODIUM 140 mEq/L (134-144)
[2016-11-30] MEDS ORDERED: NS 1,000 ML IV SCH (10:15)
[2016-11-30] MEDS: VANCOMYCIN 1.25 GM in D5W 250 ML IV SCH ×2 (10:54→22:53)
--- NOTE | 2016-11-30 11:23 | GCON ---
[f rep st] CONSULTATION INPATIENT CONSULTATION DATE OF CONSULTATION: 11/30/2016 CURRENT COMPLAINT: Left hand pain. HISTORY OF PRESENT ILLNESS: This is a 41-year-old male, who approximately 1 week ago had a red annette on the hand that he thought was possibly a spider bite. The area around the wound has slowly gotte n worse with some streaking noted up his arm. He was seen in the emergency room last night for furt her evaluation, where he underwent an I and D in the emergency room and purulence apparently was dra spivey. I was asked to see the patient for further evaluation. PHYSICAL EXAMINATION: EXTREMITIES: The patient remains grossly neurologically intact to the radial , median, and ulnar nerves. He has some discomfort to flexion of the digits across the MCP joint an d the PIP joint. However, he has no Kanavel sign associated with the extensor mechanism. There is no gross purulence noted right now, but he does have a wound that appears to be still fluctuant in t he area around the hand. His white count remains high at 11.7 this morning. ASSESSMENT AND PLAN: Patient is status post left hand abscess. Options were discussed with the pat ient including continued conservative management versus need for formal debridement. However, inste ad of being kept n.p.o. in anticipation of possibly performing debridement he was fed this morning, therefore, he will have to wait approximately 8 hours before having a formal debridement done. Once he has been cleared to be able to undergo anesthesia, we will do that. /[id number]/MODL
--- NOTE | 2016-11-30 11:38 | GCON ---
[f rep st] CONSULTATION INPATIENT INFECTIOUS DISEASE CONSULTATION REFERRING PHYSICIAN: Hanna Harry NP REASON FOR REFERRAL: Left hand subcutaneous abscess with lymphangitic streaking. HISTORY OF PRESENT ILLNESS: Patient is a 41-year-old male, [facility] of [facility]29/2016. The patient relates developing a lesion on h is left hand approximately a week ago that began getting bigger and bigger and created more swelling in his left upper extremity that has progressed to an erythematous streak up the medial aspect of h is left arm. He also notes having symptoms of sweats and chills at home. Also notes generalized ma laise. He has taken no antibiotics until presenting. He got a dose of vancomycin in the emergency room last night. Currently, he is resting comfortably in his hospital bed, awaiting evaluation and time in the OR for debridement. PAST MEDICAL HISTORY: Migraines. PAST SURGICAL HISTORY: None noted. ANTIBIOTICS: Vancomycin. ALLERGIES: Patient is allergic to hydrocodone. SOCIAL HISTORY: The patient is a current smoker. Current marijuana user. Occasional alcohol user. 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 FAMILY HISTORY: Noncontributory. REVIEW OF SYSTEMS: Other than that detailed above in History of Present Illness, a comprehensive 10 -system review is negative. PHYSICAL EXAMINATION: VITAL SIGNS: Temperature maximum is 37.5, temperature current is 36.8, heart rate is 87, respiratory rate is 18, blood pressure is 101/70. GENERAL: The patient is a well-form ed, well-nourished male, in no acute distress. He is not toxic in appearance. He is alert and orie nted x3. He has a pleasant demeanor. HEENT: Normocephalic for age. Atraumatic. No scleral icter us. No oral lesion or drainage from the nares. Eyes, lids, and conjunctivae are within normal limi ts. Pupils are equal and round bilaterally. NECK: Supple. No meningismus. LUNGS: Clear to ausc ultation bilaterally with good effort. HEART: Regular rate and rhythm. No murmur, rub, or gallop noted. No significant peripheral edema. SKIN: Warm and dry to the touch. Patient has a necrotic, purulent-appearing coin-sized lesion on the dorsal aspect of his left hand. There is significant e rythema and purulent drainage from around it. It is status post I and D from the emergency room. T he patient also has in the left upper extremity a contiguous erythematous streak on the medial aspec t of the arm, up along the antecubital region to the axilla. It is tender along this area. MUSCULO SKELETAL: No other muscle belly tenderness is noted. No joint line effusion or arthritis is seen. NEURO: Cranial nerves 2-12 seem to be intact. Peripheral sensation seems intact in extremities. LABORATORY DATA: Patient has a CBC dated 11/30/2016, shows a white blood cell count of 11.8, hemogl obin of 15.7, hematocrit of 47.2, platelet count of 238, differentials within normal limits. Serum chemistries on 11/30/2016 are all within normal limits. Creatinine 0.7. MICROBIOLOGIC DATA: The patient has blood cultures dated 11/29/2016, which are pending. Gram stain of sample from the ER shows 4+ gram-positive cocci in clusters. Culture is pending. ASSESSMENT: Likely staphylococcal skin and soft tissue disease in the left upper extremity with asc ending lymphangitis. He has a reasonable chance of having bacteremia with this as well. Vancomycin is the correct choice. We will continue this dosing at 1.25 g q.12 hours. He is n.p.o. 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 There is a reasonable chance that this is a methicillin-resistant Staph aureus infection. We will put him on contact isolation empirically. PLAN: 1. Continue vancomycin 1.25 g IV q.12 hours. 2. Follow his clinical course after surgery. 3. Follow up on culture data. /[id number]/MODL
[2016-11-30] MEDS ORDERED: POLYMYXIN B SULFATE 500,000 UNIT/10 ML SYR IRR ONE (12:16)
[2016-11-30] MEDS ORDERED: BUPIVACAINE 0.5% 30 ML SDV ONE (12:16)
[2016-11-30] MEDS ORDERED: MIDAZOLAM 2 MG/2 ML VIAL ONE (15:50)
[2016-11-30] MEDS ORDERED: fentaNYL 100 MCG/2 ML INJ ONE (15:52)
[2016-11-30] MEDS ORDERED: LIDOCAINE 2% 5 ML SDV ONE (15:52)
[2016-11-30] MEDS ORDERED: PROPOFOL 200 MG/20 ML VIAL ONE (15:52)
--- NOTE | 2016-11-30 16:39 | POSTOPPROG ---
Post Op Note Date of Operation: 11/30/16 Surgeon: Christina Nguyen Anesthesiologist: nora Anesthesia: GET(General Endotracheal) Pre-op Diagnosis: l hand infection Procedure: I&D l hand Inf/Abcess present in the surg proc area at time of surgery?: Yes Depth: Deep Incisional (Fascial) EBL: 50-100
[2016-11-30] MEDS: NICOTINE POLACRILEX 2 MG GUM B PRN (18:14)
--- NOTE | 2016-12-01 04:39 | GOP ---
[f rep st] OPERATIVE REPORT DATE OF OPERATION: 11/30/2016 SURGEON: Christina Nguyen MD ANESTHESIA: By endotracheal intubation. PREOPERATIVE DIAGNOSIS: Left hand infection. POSTOPERATIVE DIAGNOSIS: Left hand infection. PROCEDURE PERFORMED: Irrigation and debridement of left hand. FINDINGS: INDICATIONS: This is a 41-year-old male, who had an assumed bite on the dorsal portion of his hand approximately 1 week ago that has been worsening with time. He tried picking at it, to no avail. It continued to get worse. He was seen in the emergency room, where he underwent an irrigation debrid ement in the emergency room. He continued to have redness, swelling and pain. It was therefore dec ided to take him to the operating room in order to do a formal debridement. DESCRIPTION OF PROCEDURE: The patient brought to the operating room after the left side had been id entified as the correct side by the patient, nurse and physician. Once in the operating room, he wa s placed under anesthesia using endotracheal intubation once asleep. He had the left upper extremit y sterilely prepped and draped in usual fashion using GSI solution once prepped and draped. A tourn iquet was placed around the upper portion of his left forearm with the arm elevated for 2 minutes. At the end of 2 minutes, the tourniquet was inflated to 250 mmHg. The wound in the midportion of th e 5th metatarsal extending to the hypothenar eminence was extended both proximally and distally. Th ere was purulent tissue that was able to be extruded from the wound which was cultured and blunt dis section was carried down. He was found to have a sinus that ran toward the volar portion of the hyp othenar eminence. A curette was used to remove any loose fragments of tissue and any exudate from t he base of the wound, found on dorsal portion of the hand and extending into the volar portion of th e hand into the tunnel that had been created by the abscess. Once the are had been fully curetted, the wound was thoroughly irrigated with an antibiotic solution using a bulb syringe. Once 1 L of fl uid had been irrigated through the small wound, tourniquet was deflated at 8 minutes. A 0.25 inch P enrose drain was placed in the sinus tract associated with hypothenar eminence. A set of 3-0 nylon suture in a vertical mattress type stitch was used to close the wound and still allow the Theresashakila bai to be in place. The wound was then dressed with Xeroform, 4x4s, wrapped in Coban. The arm was completely undraped in the operating room, tourniquet was removed from the forearm. He was then wok en up, extubated, transferred on the stretcher, and sent to recovery room in good condition. TOURNIQUET TIME: 8 minutes. /[id number]/MODL
[2016-12-01] MEDS: oxyCODONE IR 5 MG TAB PO PRN (04:44)
[2016-12-01] MEDS: ACETAMINOPHEN 325 MG TAB PO PRN (04:44)
[2016-12-01 05:11] LABS: % IMMATURE GRANULYOCYTES 0.5 % (0.0-1.1); ABSOLUTE IMMATURE GRANULOCYTES 0.07 10^3/uL (0.00-0.10); ADD DIFF? NO; ADD MORPH? NO; ADD SCAN? NO; ATYPICAL LYMPHOCYTE FLAG 10 (0-99); FRAGMENT RBC FLAG 0 (0-99); HEMATOCRIT 41.2 % (40.0-51.0); HEMOGLOBIN 14.4 g/dL (13.7-17.5); LEFT SHIFT FLG 0 (0-99); LIPEMIA HEMOLYSIS FLAG 90 (0-99); MEAN CELL VOLUME 88.6 fL (81.5-99.8); MEAN PLATELET VOLUME 11.1 fL (8.7-11.7); PLATELET CLUMPS FLAG 0 (0-99); PLATELET COUNT 252 10^3/uL (150-400); RED BLOOD CELL COUNT 4.65 10^6/uL (4.40-6.38); RED CELL DISTRIBUTION WIDTH 12.8 % (11.5-15.2)
[2016-12-01] MEDS: NICOTINE 21 MG/24 HR PATCH TD SCH (08:53)
[2016-12-01] MEDS: ENOXAPARIN 40 MG/0.4 ML SYR SC SCH (08:55)
[2016-12-01] MEDS: VANCOMYCIN 1.25 GM in D5W 250 ML IV SCH ×2 (10:42→22:19)
--- NOTE | 2016-12-01 11:58 | SOAPPROG ---
SOAP Progress Note Assessment/Plan: Assessment: Plan: cont abx, november d/c from ortho perspective 12/01/16 11:57 Subjective: Reports pain and swelling improving, culture pos for MRSA Objective: Vital Signs Temp Pulse Resp BP Pulse Ox 36.4 C 98 16 112/76 94 12/01/16 11:27 12/01/16 11:27 12/01/16 11:27 12/01/16 11:27 12/01/16 11:27 Microbiology 11/30/16 16:14 Gram Stain - Final Hand - Eswab Laboratory Results 12/01/16 04:40 11/30/16 12/01/16 12/02/16 05:59 05:59 05:59 Intake Total 2890 Output Total 5 Balance 2885 PT 12.9 SEC (12.0-15.0) 11/29/16 15:10 INR 0.98 (0.83-1.16) 11/29/16 15:10 Mod swelling of fingers, mod tender over hand and forearm, no swelling in axilla - Time Spent With Patient Time Spent With Patient: 10 - Pending Discharge Pending Discharge Within 24 Hours: No Pending Discharge Within 48 Hours: No ICD10 Worksheet Patient Problems: Problems Problem Status Onset Cellulitis of left hand Acute Acute bronchitis Acute Influenza A Acute Migraine equivalent Acute Sepsis Acute
--- NOTE | 2016-12-01 13:07 | HOSPPROG ---
Hospitalist Progress Note Assessment/Plan: Patient is a 41-year-old male presented with left hand and arm pain. His symptoms began a week ago in which he thought was a spider bite. He attempted to pick at the area to drain it. The pain became worse and he was admitted for further care. This is my first encounter with the patient. Chart reviewed. * left upper extremity cellulitis with associated lymphangitis/left hand/ concern for abscess started on IV vancomycin MRSA staph infection patient has been afebrile an white blood cell count has trended down POD #1 drainage and I&D * pain due to this pain controlled * sepsis noted on admission resolved * nicotine dependence patch *Plan :Cont IV abx, follow cx, abx based on ID recs Subjective: Up eating, pain stable. Concerned about plan, no other issues. Objective: Vital Signs Temp Pulse Resp BP Pulse Ox 36.4 C 98 16 112/76 94 12/01/16 11:27 12/01/16 11:27 12/01/16 11:27 12/01/16 11:27 12/01/16 11:27 Microbiology 11/30/16 16:14 Gram Stain - Final Hand - Eswab Laboratory Results 12/01/16 04:40 11/30/16 12/01/16 12/02/16 05:59 05:59 05:59 Intake Total 2890 Output Total 5 Balance 2885 PT 12.9 SEC (12.0-15.0) 11/29/16 15:10 INR 0.98 (0.83-1.16) 11/29/16 15:10 - Physical Exam Constitutional: no apparent distress, appears nourished, not in pain Eyes: PERRL, anicteric sclera, EOMI Ears, Nose, Mouth, Throat: moist mucous membranes, hearing normal, ears appear normal Cardiovascular: tachycardia, No JVD, No edema Respiratory: no respiratory distress, no rales or rhonchi, reduced air movement Gastrointestinal: No tenderness, No ascites, No guarding Skin: warm, erythema, No mottled Musculoskeletal: full muscle strength, pain with ROM, No abnormal gait Neurologic: AAOx3 Psychiatric: interacting appropriately, not anxious, not encephalopathic, thought process linear ICD10 Worksheet Patient Problems: Problems Problem Status Onset Migraine equivalent Acute Influenza A Acute Acute bronchitis Acute Sepsis Acute Cellulitis of left hand Acute
[2016-12-01] MEDS: LORazepam 0.5 MG TAB PO PRN (14:06)
[2016-12-01] MEDS: IBUPROFEN 200 MG TAB PO PRN (14:06)
--- NOTE | 2016-12-01 18:30 | PCMIDPN ---
Assessment/Plan: Assessment: Left hand abscess secondary to MRSA. Ascending lymphangitis is much improved. Coverage continues on vancomycin 1.25 g IV q.12 hours. Will continue this for now and follow up on full sensitivities. If blood cultures remain negative then this patient could possibly discharge in the next 1-2 days on oral doxycycline or Bactrim to complete a 10-14 day course. Plan: 1. Continue vancomycin. 2. Follow up sensitivities on the MRSA isolate. 3. Follow appearance of the left hand wound. Subjective: Patient is resting in his hospital bed he appears a bit groggy from pain medication. States his left arm is doing better. No fevers or chills. Objective: Vancomycin #2 Vital Signs Temp Pulse Resp BP Pulse Ox 36.6 C 88 16 115/73 94 12/01/16 16:00 12/01/16 16:00 12/01/16 16:00 12/01/16 16:00 12/01/16 16:00 Microbiology 11/30/16 16:14 Gram Stain - Final Hand - Eswab Laboratory Results 12/01/16 04:40 11/30/16 12/01/16 12/02/16 05:59 05:59 05:59 Intake Total 2890 300 Output Total 5 Balance 2885 300 - Physical Exam General Appearance: WD/WN, alert, no apparent distress, thin Respiratory: lungs clear, normal breath sounds, No respiratory distress Cardiac/Chest: regular rate, rhythm, No tachycardia Extremities: non-tender, inflammation, erythema (Mild), No normal inspection Skin: normal color, warm/dry, No rash Neuro/Psych: alert, normal mood/affect, oriented x 3 ICD10 Worksheet Patient Problems: Problems Problem Status Onset Cellulitis of left hand Acute Acute bronchitis Acute Influenza A Acute Migraine equivalent Acute Sepsis Acute
[2016-12-02 01:27] VITALS: RESP 16
[2016-12-02 09:31] VITALS: BP 116/77; PULSE 95; TEMP 97.5; O2SAT 95
[2016-12-02] MEDS: ENOXAPARIN 40 MG/0.4 ML SYR SC SCH (09:56)
--- NOTE | 2016-12-02 10:16 | PCMIDPN ---
Assessment/Plan: Assessment/Plan: 1. Left Hand abscess secondary to MRSA: - s/p I & D on 11/30/16 -On vanco at present. clinically improved. -change to bactrim today. side effects, duration of therapy, and importance of f /u discussed with patient at length - care coordinated with telehealth case manager, -f/u appt 12/10/16 at 9:30am -care coordiated with hospitalist team. Subjective: afebrile. feels better. denies pain. christy drain in place. no redness up arm/ forearm. denies sob, abd pain or diarrhea. Objective: Vital Signs Temp Pulse Resp BP Pulse Ox 36.4 C 95 16 116/77 95 12/02/16 08:00 12/02/16 08:00 12/02/16 08:00 12/02/16 08:00 12/02/16 08:00 Microbiology 11/30/16 16:14 Gram Stain - Final Hand - Eswab Laboratory Results 12/01/16 04:40 12/01/16 12/02/16 12/03/16 05:59 05:59 05:59 Intake Total 2890 700 Output Total 5 Balance 2885 700 - Physical Exam General Appearance: alert, no apparent distress Respiratory: lungs clear Cardiac/Chest: regular rate, rhythm Extremities: No swelling Abdomen: normal bowel sounds, non-tender, soft, No distended Skin: other (left hand: no erythema. minimal if any residual swelling. nontender to palpate. no induration. christy drain noted. ) ICD10 Worksheet Patient Problems: Problems Problem Status Onset Acute bronchitis Acute Cellulitis of left hand Acute Influenza A Acute MRSA (methicillin resistant Staphylococcus aureus) Acute ~11/29/16 Migraine equivalent Acute Sepsis Acute
[2016-12-02] MEDS ORDERED: SULFAMETHOX/TMP 800/160 MG 1 TAB PO SCH (10:30)
[2016-12-02] MEDS: NICOTINE 21 MG/24 HR PATCH TD SCH (11:20)
--- NOTE | 2016-12-02 13:00 | GDS ---
[f rep st] DISCHARGE SUMMARY DISCHARGE DIAGNOSES: 1. Left hand abscess secondary to methicillin-resistant Staphylococcus aureus. 2. Pain. 3. Nicotine dependence. 4. Sepsis. CONSULTATIONS: 1. Infectious Disease. 2. Orthopedics, Dr. Nguyen. STUDIES AND PROCEDURES DONE: Surgical I and D. PHYSICAL EXAM: GENERAL: The patient is alert. VITAL SIGNS: Afebrile at 36.4 , pulse is 95, respiratory rate 16, blood pressure is 116/77, he is saturating 95% on room air. I have seen and evaluated the patient on the day of discharge. HOSPITAL COURSE: The patient is a 41-year-old male presenting to the emergency room with complaints of left hand and arm pain. He was evaluated and diagnosed with: 1. Left upper extremity cellulitis with abscess secondary to MRSA. During this hospitalization he received an ID consultation, as well as a surgical intervention of I and D and drainage of his abscess. He was treated with IV antibiotics therapy. He has been transitioned to oral antibiotics at the time of disposition, and will continue this in the outpatient setting for 14 days. He has been placed on Bactrim. 2. Pain, this is well managed. 3. Sepsis, this has resolved. 4. Nicotine dependence. He has received tobacco cessation education during this hospitalization. 5. Disposition. The patient will be discharged independently. Followup will be with Dr. Vera on 12/10/2016 at 9:30 in the a.m. He will also follow up at [facility] and with Dr Nguyen in one week. There are no pending studies. I reviewed the patient's disposition with the patient case coordinator, as well as the nurse. I spent greater than 35 minutes in the care, coordination, and management of the patient's discharge. DISCHARGE MEDICATIONS: I have provided the patient a prescription for Bactrim DS 1 tab p.o. twice daily, #28. /[id number]/MODL MTDD
--- NOTE | 2016-12-05 11:34 | PQFORM ---
PHYSICIAN QUERY FORM Needs Your Response This query form is being sent to you to assure this patient record is coded properly. Please respond to the question below: CUSTOMER SERVICE VOICE QUESTION: Dr Nguyen Please further describe the debridement on this patient as either __x_ excisional ___ non excisional ___ other ( ) Thank You Ivette GRAHAM Reaming Machine Operator INSTRUCTIONS FOR RESPONSE: Answer question by clicking on the "Edit Document" button. Move cursor to area below the stars. When complete, hit "Save." Click on the "Sign" button, then click "Sign" again. Type in your PIN and hit "Enter." MTDD
== END 2016-12-02 11:52 | disposition home or self-care (01) | DRG 854 ==
LOC: INTOOBSV 15:57 → F3N 16:56 → OBSVTOIN 11-30 09:07
PROVIDERS: ADMIT Internal Medicine; ATTEND Internal Medicine
DX: A41.02 Sepsis due to Methicillin resistant Staphylococcus aureus (principal); L03.114 Cellulitis of left upper limb; F17.210 Nicotine dependence, cigarettes, uncomplicated; F12.90 Cannabis use, unspecified, uncomplicated
CPT/HCPCS: 96365; G0378; J1170; J1650; J2250; J2405; J2704; J3010; J3370